=== PATIENT | female | born 1945 | race Two or more races ===

== ENCOUNTER 2025-03-10 14:19 | Emergency (ER) | payer OTHER ==
[~2025-03-10] VITALS: Ht 144.8 cm; Wt 53.5 kg
[2025-03-10] MEDS ORDERED: ATORVASTATIN CA20 MG PO (14:55)
[2025-03-10] MEDS ORDERED: ROSUVASTATIN CA40 MG PO (14:56)
[2025-03-10] MEDS ORDERED: NORVASC2.5 MG PO (14:56)
[2025-03-10] MEDS ORDERED: LISINOPRIL40 MG PO (14:56)
[2025-03-10] MEDS ORDERED: CARVEDILOL12.5 M1 PO (14:56)
[2025-03-10] MEDS ORDERED: HYDROCHLOROTH12.5 M2 PO (14:56)
[2025-03-10] MEDS ORDERED: ACETAMINOPHEN 500 MG GEL..CAP PO ONE (16:45)
[2025-03-10] MEDS ORDERED: 0.9 % SODIUM CHLORIDE 1,000 ML IV STA (17:39)
[2025-03-10 18:21] LABS: BASO % 0.5 % (0.1-1.2); EOS # 0.08 (0.04-0.54); EOS % 0.7 % (0.7-7.0); LYMPH # 1.14 (1.18-3.74); LYMPH % 9.5 % (19.3-53.1); MEAN PLATELET VOLUME 11.70 fl (9.4-12.4); MONO # 0.83 (0.24-0.82); MONO % 6.9 % (4.7-12.5); NEUT # 9.84 (1.56-6.13); NEUT % 82.0 % (34.0-71.1); RED CELL DISTRIBUTION WIDTH 14.4 % (11.6-14.4)
[2025-03-10 18:44] LABS: INR 1.21
[2025-03-10 18:46] LABS: BUN CREA RATIO 21.0 (7.0-25.0); CREATININE SERUM 0.58 mg/dL (0.55-1.02); GFR 99.77; GLUCOSE FASTING 126.0 mg/dL (65-100); OSMOLALITY SERUM 286.0 MOSM/KG (275-295)
== END 2025-03-10 19:45 | disposition designated cancer center or children's hospital (05) ==
LOC: ER 14:19
PROVIDERS: General Practice
DX: I62.01 Nontraumatic acute subdural hemorrhage (principal); S09.8XXA Other specified injuries of head, initial encounter; W01.0XXA Fall on same level from slipping, tripping and stumbling without subsequent striking against object, initial encounter; Y93.F1 Activity, caregiving, bathing; Y92.013 Bedroom of single-family (private) house as the place of occurrence of the external cause; E11.9 Type 2 diabetes mellitus without complications; I10 Essential (primary) hypertension; I60.8 Other nontraumatic subarachnoid hemorrhage
CPT/HCPCS: 36415; 70450; 72125; 72170; 96365; 96366; 99285; J7030